=== PATIENT | female | born 1975 | race Caucasian/White ===

== ENCOUNTER 2016-09-16 08:07 | Emergency (ER) | payer OTHER ==
[2016-09-16 08:12] VITALS: TEMP 98.3; BMI 29.2
[2016-09-16] MEDS ORDERED: KETOROLAC TROMETHAMINE 30 MG/1 ML VIAL IVPUSH ONE (08:36)
--- NOTE | 2016-09-16 08:36 | PDOC ---
History of Present Illness - General Chief Complaint: Chest Pain Stated Complaint: CHEST PAIN Time Seen by Provider: 09/16/16 08:20 History Source: Patient Exam Limitations: No Limitations - History of Present Illness Initial Comments: 09/16/16 09:12 41-year-old female presents to the ED for evaluation of substernal chest pain which she describes a dull aching sensation worsened with movement. Patient states no recent travel, recent illness, recent injury, recent change in activity and states symptoms began last night while laying down. Pt denies medical hx, smoking hx, or fever. Presenting Symptoms: Chest Pain Timing/Duration: reports: constant Severity/Quality: reports: aching, dull Location: reports: substernal Chest Pain Radiation: reports: no radiation Activities at Onset: reports: none Prior Chest Pain/Cardiac Workup: reports: No prior chest pain Nitro Today/Relief: Yes: no nitro taken today Aspirin Received prior to arrival (Core Measure): Yes: no aspirin today Associated Symptoms: Yes: Chest Pain/pressure Past History - Past Medical History Allergies/Adverse Reactions: Allergies Allergy/AdvReac Type Severity Reaction Status Date / Time No Known Allergies Allergy Verified 09/16/16 08:12 Home Medications: Ambulatory Orders Iron 325 mg PO DAILY 09/16/16 - Psycho/Social/Smoking Cessation Hx Suicidal Ideation: No Smoking History: Never smoked Information on smoking cessation initiated: No Patient Lives Alone: No Lives with/in: spouse/SO Review of Systems - Review of Systems Able to Perform ROS?: Yes Constitutional: No: Symptoms Reported HEENTM: No: Symptoms Reported Respiratory: No: Shortness of Breath Cardiac (ROS): Yes: Chest Pain. No: Irregular Heart Rate, Lightheadedness, Palpitations, Chest Tightness ABD/GI: No: Symptoms Reported : No: Symptoms Reported Musculoskeletal: No: Symptoms Reported Integumentary: No: Symptoms Reported Neurological: No: Symptoms reported Endocrine: No: Symptoms Reported *Physical Exam - Vital Signs Last Vital Signs Temp Pulse Resp BP Pulse Ox 98.3 F 76 18 132/82 99 09/16/16 08:09 09/16/16 08:09 09/16/16 08:09 09/16/16 08:09 09/16/16 08:09 - Physical Exam General Appearance: Yes: Nourished, Appropriately Dressed. No: Apparent Distress Neck: negative: Tender, Supple, Decreased range of motion Respiratory/Chest: positive: Chest Tender (misdternal and left upper chest), Lungs Clear, Normal Breath Sounds. negative: Respiratory Distress, Accessory Muscle Use Cardiovascular: positive: Regular Rhythm, Regular Rate. negative: Murmur Vascular Pulses: Dorsalis-Pedis (R): 2+, Doralis-Pedis (L): 2+ Extremity: positive: Normal Capillary Refill. negative: Pedal Edema Integumentary: positive: Normal Color, Warm, Moist Heart Score/ECG Review - History History: Slightly suspicious - Electrocardiogram EKG: Normal - Age Age: </= 45 - Risk Factors Based on the list above the patient has:: No risk factors known - Troponin Troponin: </= normal limit - Score Heart Score - Total: 0 - ECG Intrepretation Rhythm: Regular Rhythm (nsr @60. Intervals are reg. No st elevation/depression) ED Treatment Course - LABORATORY CBC & Chemistry Diagram: 09/16/16 08:59 09/16/16 08:59 - ADDITIONAL ORDERS Additional order review: Laboratory Results 09/16/16 08:59 Sodium 139 Potassium 5.0 Chloride 106 Carbon Dioxide 25 Anion Gap 8 BUN 15 Creatinine 0.7 Creat Clearance w eGFR > 60 Random Glucose 93 Calcium 9.0 Total Bilirubin 0.4 AST 22 ALT 22 Alkaline Phosphatase 107 Creatine Kinase 82 Troponin I < 0.02 Total Protein 7.3 Albumin 3.8 09/16/16 08:59 RBC 4.56 MCV 88.4 MCHC 33.9 RDW 13.4 MPV 8.1 Neutrophils % 69.3 Lymphocytes % 18.4 Monocytes % 9.9 Eosinophils % 1.8 Basophils % 0.6 - RADIOLOGY Radiology Studies Ordered: Category Date Time Status CHEST X-RAY PORTABLE* [RAD] Stat Radiology 09/16/16 08:36 Completed - Medications Given in the ED: ED Medications Discontinued Medications Generic Name Dose Route Start Last Admin Trade Name Freq PRN Reason Stop Dose Admin Ketorolac Tromethamine 30 mg 09/16/16 08:36 09/16/16 08:57 Toradol Injection - IVPUSH 09/16/16 08:37 30 mg ONCE ONE Administration Medical Decision Making - Medical Decision Making 09/16/16 09:28 Patient with complaints of midsternal chest achiness since last night. Patient on exam had reproducible chest pain to the midsternal region and left upper chest. Patient was ordered for labs chest x-ray EKG and IV Toradol since this is likely costochondritis or muscle skeletal related. Heart score is 0. 09/16/16 10:04 Pt states pain has been resolved 09/16/16 10:05 Laboratory Tests 09/16/16 09/16/16 08:59 08:59 WBC 6.0 Hgb 13.7 Hct 40.3 Neutrophils % 69.3 Sodium 139 Potassium 5.0 Chloride 106 Carbon Dioxide 25 Anion Gap 8 BUN 15 Creatinine 0.7 Random Glucose 93 Calcium 9.0 AST 22 ALT 22 Troponin I < 0.02 *DC/Admit/Observation/Transfer Diagnosis at time of Disposition: Costal chondritis - Discharge Dispostion Disposition: HOME Condition at time of disposition: Improved - Referrals Referrals: Awa Abernathy MD [Primary Care Provider] - - Patient Instructions Printed Discharge Instructions: DI for Costochondritis Additional Instructions: Please take Motrin as prescribed for the next 3 days. Avoid movements that trigger discomfort. If pain continues please follow up with your PCP for other options - Post Discharge Activity Work/School Note: Back to Work
[2016-09-16] MEDS ORDERED: KETOROLAC TROMETHAMINE 30 MG/1 ML VIAL ONE (08:45)
[2016-09-16 09:06] LABS: BASOPHIL 0.6 % (0-2.0); EOSINOPHIL 1.8 % (0-4.5); MCHC 33.9 g/dl (32.0-36.0); MEAN CELL VOLUME 88.4 fl (80-96); MEAN PLT VOLUME 8.1 fl (7.5-11.1); NEUTROPHILS 69.3 % (42.8-82.8); PLATELET COUNT 270 K/MM3 (134-434); RDW 13.4 % (11.6-15.6)
[2016-09-16 09:33] LABS: ALBUMIN 3.8 g/dl (3.4-5.0); ANION GAP 8 (8-16); BILIRUBIN,TOTAL 0.4 mg/dL (0.2-1.0); CO2 25 mmol/L (21-32); CREATININE 0.7 mg/dL (0.55-1.02); GLUCOSE,RANDOM 93 mg/dL (74-106); SGPT/ALT 22 U/L (12-78); TOT PROT 7.3 g/dl (6.4-8.2)
[2016-09-16 09:35] LABS: TROPONIN I < 0.02 ng/ml (0.00-0.05)
[2016-09-16 09:36] LABS: ALK PHOS 107 U/L (45-117); SGOT/AST 22 U/L (15-37)
--- NOTE | 2016-09-16 09:38 | PDOC ---
*Physical Exam - Vital Signs Last Vital Signs Temp Pulse Resp BP Pulse Ox 98.3 F 76 18 132/82 99 09/16/16 08:09 09/16/16 08:09 09/16/16 08:09 09/16/16 08:09 09/16/16 08:09 ED Treatment Course - LABORATORY CBC & Chemistry Diagram: 09/16/16 08:59 09/16/16 08:59 - ADDITIONAL ORDERS Additional order review: Laboratory Results 09/16/16 08:59 Sodium 139 Potassium 5.0 Chloride 106 Carbon Dioxide 25 Anion Gap 8 BUN 15 Creatinine 0.7 Creat Clearance w eGFR > 60 Random Glucose 93 Calcium 9.0 Total Bilirubin 0.4 AST 22 ALT 22 Alkaline Phosphatase 107 Creatine Kinase 82 Troponin I < 0.02 Total Protein 7.3 Albumin 3.8 09/16/16 08:59 RBC 4.56 MCV 88.4 MCHC 33.9 RDW 13.4 MPV 8.1 Neutrophils % 69.3 Lymphocytes % 18.4 Monocytes % 9.9 Eosinophils % 1.8 Basophils % 0.6 - Medications Given in the ED: ED Medications Discontinued Medications Generic Name Dose Route Start Last Admin Trade Name Carlos Albertoq PRN Reason Stop Dose Admin Ketorolac Tromethamine 30 mg 09/16/16 08:36 09/16/16 08:57 Toradol Injection - IVPUSH 09/16/16 08:37 30 mg ONCE ONE Administration Medical Decision Making - Medical Decision Making 09/16/16 09:38 Pt seen by the Advanced Practice Provider under my direct supervision Ancillary studies reviewed I agree with plan as outlined by the Advanced Practice Provider CATHIE Lawrence *DC/Admit/Observation/Transfer Diagnosis at time of Disposition: Costal chondritis - Discharge Dispostion Disposition: HOME Condition at time of disposition: Improved - Referrals Referrals: Awa Abernathy MD [Primary Care Provider] - - Patient Instructions Printed Discharge Instructions: DI for Costochondritis Additional Instructions: Please take Motrin as prescribed for the next 3 days. Avoid movements that trigger discomfort. If pain continues please follow up with your PCP for other options - Post Discharge Activity Work/School Note: Back to Work
[2016-09-16 11:08] VITALS: BP 119/77; PULSE 77
--- NOTE | 2016-09-16 13:05 | EKG ---
Test Reason : Blood Pressure : / mmHG Vent. Rate : 060 BPM Atrial Rate : 060 BPM P-R Int : 150 ms QRS Dur : 088 ms QT Int : 430 ms P-R-T Axes : 053 041 033 degrees QTc Int : 430 ms NORMAL SINUS RHYTHM NORMAL ECG WHEN COMPARED WITH ECG OF 11-JUL-2008 23:33, VENT. RATE HAS DECREASED BY 29 BPM QT HAS SHORTENED Confirmed by JESSIE DONOVAN MD ([id number]) on 09/16/2016 1:04:48 PM Referred By: Confirmed By:JESSIE DONOVAN MD
== END 2016-09-16 10:55 | disposition home or self-care (01) ==
LOC: JER 08:07
PROC: 3E0333Z Introduction of Anti-inflammatory into Peripheral Vein, Percutaneous Approach (ICD-10-PCS; principal; 2016-09-16)
DX: M94.0 Chondrocostal junction syndrome [Tietze] (principal)
CPT/HCPCS: 36415; 71010-TC; 80053; 82550; 84484; 84703; 85025; 93005; 93010; 99284-25